=== PATIENT | male | born 1965 | race African-American/Black ===

== ENCOUNTER 2018-08-28 12:01 | Emergency (ER) | payer OTHER ==
[~2018-08-28] VITALS: Ht 185.4 cm; Wt 112.5 kg
[~2018-08-28 12:01] MED LIST: AMLODIPINE BESY10 MG PO; CIALIS10 MG; DEPO-TESTO100 MG/1 M IM; GLUCOPHAGE1000 MG PO; GLYBURIDE 5 MG T5 MG PO; HYDROCODONE-AP1 EAC6 PO; INDOMETHACIN 2525 MG PO; LIPITOR; LISINOPRIL20 MG PO; NORCO 5-325 TA1 EACH PO; NORFLEX100 MG PO; OXYCODONE PO; PERCOCET 10-321 EACH; PERCOCET 10-321 EACH PO; PERCOCET 5-3251 EACH PO; TRAMADOL 50 MG50 MG; ZIAGEN 300 MG300 MG
[2018-08-28 14:21] VITALS: BP 141/76
[2018-08-28] MEDS ORDERED: MOBIC7.5 MG PO (14:26)
[2018-08-28] MEDS ORDERED: NORFLEX100 MG PO (14:26)
== END 2018-08-28 14:51 | disposition home or self-care (01) ==
LOC: ER 12:01
DX: S16.1XXA Strain of muscle, fascia and tendon at neck level, initial encounter (principal); S39.012A Strain of muscle, fascia and tendon of lower back, initial encounter; S29.012A Strain of muscle and tendon of back wall of thorax, initial encounter; E11.9 Type 2 diabetes mellitus without complications; I10 Essential (primary) hypertension; M10.9 Gout, unspecified; Z88.6 Allergy status to analgesic agent; V89.2XXA Person injured in unspecified motor-vehicle accident, traffic, initial encounter; Y92.89 Other specified places as the place of occurrence of the external cause; Y93.89 Activity, other specified; Y99.8 Other external cause status

== ENCOUNTER 2020-04-17 16:44 | Emergency (ER) | payer OTHER ==
[~2020-04-17] VITALS: Ht 188 cm; Wt 108.0 kg
[~2020-04-17 16:44] MED LIST changes: +MOBIC7.5 MG PO
[2020-04-17 17:08] LABS: ABSOLUTE NEUTROPHILS 9.2 thou/uL (1.4-8.2); BASOPHILS 0.6 % (0.0-2.0); EOSINOPHILS 1.8 % (0.0-3.0); HEMATOCRIT 40.1 % (42.0-52.0); HEMOGLOBIN 14.2 gm/dL (14.0-18.0); LYMPHOCYTES 16.6 % (24.0-44.0); MCH 29.8 pg (26.0-34.0); MCHC 35.4 g/dL (28.0-37.0); MCV 84.3 fL (80.0-100.0); MONOCYTES 10.2 % (1.0-8.0); PLATELET COUNT 220 thou/uL (150-400); POLYS 70.8 % (36.0-66.0); RBC 4.76 mil/uL (4.50-6.00); RDW 14.1 % (10.5-14.5)
[2020-04-17 17:24] LABS: AMP/METHAMP POSITIVE (Negative); BARBITURATES Negative (Negative); BENZODIAZEPINES Negative (Negative); COCAINE Negative (Negative); METHADONE POSITIVE (Negative); OPIATES POSITIVE (Negative); PCP Negative (Negative)
[2020-04-17 17:55] LABS: URINE BILIRUBIN NEGATIVE (Negative); URINE BLOOD NEGATIVE (Negative); URINE CLARITY CLEAR; URINE COLOR YELLOW; URINE GLUCOSE-RANDOM* 3+ (Negative); URINE KETONES NEGATIVE (Negative); URINE LEUKOCYTES-REFLEX NEGATIVE (Negative); URINE NITRITE-REFLEX NEGATIVE (Negative); URINE PROTEIN (DIPSTICK) NEGATIVE (Negative); URINE UROBILINOGEN 0.2 E.U./dl (0.2-1.0)
--- NOTE | 2020-04-17 18:35 | NUR ---
PT TAKES INSULIN ACCORDING TO . PT IS UNABLE TO PROVIDE MEDICATION INFORMATION.
[2020-04-17 18:38] LABS: BE(vivo) -0.4 mmol/L (-2 to +3); PCO2 38.6 mmHg (35.0-45.0); PO2 82.3 mmHg (80.0-100.0); pH 7.411 (7.360-7.450); sO2 96.2 % (92.0-98.0)
[2020-04-18] MEDS ORDERED: PERCOCET 10-321 EAC1 PO (00:05)
[2020-04-18] MEDS ORDERED: LANTUS SUBQ (00:07)
[2020-04-18 05:57] LABS: HEMATOCRIT 37.5 % (42.0-52.0); MCH 29.6 pg (26.0-34.0); MCHC 34.7 g/dL (28.0-37.0); MCV 85.2 fL (80.0-100.0); RBC 4.4 mil/uL (4.50-6.00); RDW 14.4 % (10.5-14.5); WBC 10.2 thou/uL (4.0-11.0)
[2020-04-18 06:13] LABS: CALCIUM 8.3 mg/dL (8.5-10.1); POTASSIUM 4.2 mmol/L (3.5-5.1)
--- NOTE | 2020-04-18 07:39 | EKG ---
[facility] [place] [address] ELECTROCARDIOGRAM REPORT Name: MEIR ARENAS Room #: 170-6 ADM IN M.R.#: [id number] Admission: 04/17/20 Attend Phys: Dl Prakash MD Discharge: Date of : 61 Report #: [id number] THIS REPORT FOR: cc: Humberto Velasquez MD, James E. MD Lundgren,Gene Bustos MD MERGED WITH [facility] ~ THIS REPORT FOR: //name// [facility] ED Test Date: 2020-04-17 Test Time: 18:41:45 Pat Name: MEIR ARENAS Department: Room: 170 Gender: M Order Entry Representative: [facility] [place] : 1965 Requested By: Kenroy Sal Order Number: [id number] MD: Gene Alvarez Measurements Intervals Edison Rate: 94 P: OR: QRS: -1 QRSD: 98 T: 69 QT: 294 QTc: 368 Interpretive Statements Normal sinus rhythm Nonspecific T wave abnormality Compared to ECG 03/10/2014 02:45:12 No significant change was found Electronically Signed On 04-18-2020 7:38:55 CDT by Gene Alvarez [email or web address] <ELECTRONICALLY SIGNED> By: Gene Alvarez MD, FACC 04/18/20 0738 [id number] [id number] Gene Alvarez MD, MERGED WITH [facility] /EPI
--- NOTE | 2020-04-18 08:31 | NUR ---
SPOKE WITH PAPITO () [phone] INFORMED OF PT STATUS AND INTENT TO DISCUSS D/C WITH PHYSICIAN
[2020-04-18 13:05] VITALS: BP 131/57
--- NOTE | 2020-04-18 13:15 | NUR ---
SPOKE WITH PT WHO IS STARTING TO FEEL ANXIOUS AND STATES "IT FEELS LIKE THE [facility]NCARNA[facility] ARE CLOSING IN". PT AND ARE CURIOUS ABOUT WHEN PT WILL BE MOVED TO A ROOM ON THE FLOOR. IS WONDERING IF SHE CAN JUST TAKE THE PT HOME BECAUSE SHE IS OFF TODAY AND TOMORROW. DR LOW PAGED SO THIS RN CAN RECEIVE UPDATE ON POC TO GIVE PT AND FAMILY UPDATE.
--- NOTE | 2020-04-18 13:30 | NUR ---
CALLED DR LOW TO DISCUSS PT REQUEST THERE ARE NO AFFIDAVITS ON THE PT THAT WOULD LEGALLY KEEP HIM ON A PSYCH HOLD IF HE DECIDED TO LEAVE; DR LOW INSTRUCTED THIS RN TO CALL DR TALBERT BECAUSE FROM HIS STAND POINT THE PT WAS MEDICALLY CLEARED AND WAS NOW ONLY REQUIRING PSYCIATRIC ATTENTION
--- NOTE | 2020-04-18 13:45 | NUR ---
CALLED DR TALBERT'S CELLPHONE AND LEFT VOICEMAIL TO DISCUSS PT AND SPOUSE'S DESIRE TO LEAVE AND NEED FOR AN AFFIDAVIT TO BE FILLED OUT BY HER SHE IS THE ONLY PT WHO HEARD THE PT STATE HIS OD YESTERDAY WAS INTENTIONAL AND AN ATTEMPT TO END HIS LIFE
--- NOTE | 2020-04-18 14:30 | NUR ---
STILL HAVE NOT RECEIVED A CALL BACK FROM DR TALBERT AND PT/SPOUSE ARE ANXIOUS TO GO HOME EVEN THOGH A MEDICAL BED IS AVAILABLE. SPOKE TO DR LOW AGAIN WHO SAID HE WOULD ATTEMPT TO GET IN CONTACT WITH DR TALBERT TO HAVE HER CALL THIS RN ON A POC FOR PT
--- NOTE | 2020-04-18 15:07 | NUR ---
THIS RN SPOKE TO DR TALBERT WHO STATED THERE IS AN INPT PSYCH BED ON A SMALL UNIT AT [facility] GOING THROUGH SIMILAR EPISODES OF PSYCHIATRIC DISTRESS. WOULD LIKE TO DISCUSS PLAN WITH PT AND PT'S . DR TALBERT GIVEN 'S CELL NUMBER SO TO SPEAK WITH PT AND HER ON SPEAKER PHONE IN THE PT ROOM WITH THIS RN ALSO PRESENT
--- NOTE | 2020-04-18 15:15 | NUR ---
DR TALBERT ON SPEAKER PHONE TO DISCUSS POC WITH PT AND GIVE HER RECOMMENDATIONS. PT AND NOT AGREEABLE TO INPT STAY ANYWHERE AND WOULD LIKE TO GO HOME. DR TALBERT AGAIN RECOMMENDED MORE TX FOR PT BUT PT WAS PERSISTENT ABOUT GOING HOME. DR TALBERT RELUCTANTLY INFORMED PT SHE WOULD RELEASE HIS PSYCH HOLD ON THE CONDITION THAT THE PT F/U WITH HIS PSYCHIATRIST AND HAVE HIS PSYCHIATRIST CALL HER. DR TALBERT STATED SHE WOULD DISCUSS THIS PLAN AND POC WITH DR LOW SO HE WOULD PUT IN FOR PT D/C.
[2020-04-18 15:53] VITALS: BP 131/57
[2020-04-18 16:00] VITALS: BP 131/57
== END 2020-04-18 16:00 | disposition home or self-care (01) ==
LOC: ER 16:44 → EROBS 20:14 → ER 04-18 16:00
PROVIDERS: Emergency Medicine; Nurse Practitioner Family
DX: G93.40 Encephalopathy, unspecified (principal); R74.01 Elevation of levels of liver transaminase levels; R82.5 Elevated urine levels of drugs, medicaments and biological substances; E11.9 Type 2 diabetes mellitus without complications; I10 Essential (primary) hypertension; Z88.6 Allergy status to analgesic agent